=== PATIENT | female | born 1965 | race Two or more races ===

== ENCOUNTER 2020-08-18 11:40 | Emergency (ER) | payer MEDICAID ==
[~2020-08-18] VITALS: Ht 165.1 cm; Wt 120.2 kg
[2020-08-18] MEDS ORDERED: Ketorolac 30mg Inj IM ONE (12:15)
[2020-08-18] MEDS ORDERED: Bacitracin Oint 15gm Tube TOPIC ONE (12:15)
[2020-08-18] MEDS ORDERED: HYDROcodone/Acetamin 5/325 tab ORAL ONE (12:15)
[2020-08-18 12:20] VITALS: BP 126/76
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
[2020-08-18] MEDS ORDERED: Tetanus/Diptheria/Pertussis IM ONE (12:45)
[2020-08-18 13:41] LABS: HEMATOCRIT 44.8 % (37.0-47.0); HEMOGLOBIN 14.7 G/DL (12.0-16.0); MEAN CORPUSCULAR VOLUME 85 FL (80-99); PLATELET COUNT 334 K/UL (150-450); RED BLOOD COUNT 5.26 M/UL (4.20-5.40); RED CELL DISTRIBUTION WIDTH 13.7 % (11.6-14.8)
[2020-08-18 13:49] LABS: WHITE BLOOD COUNT 25.2 K/UL (4.8-10.8)
[2020-08-18 13:53] LABS: CALCIUM 9.2 MG/DL (8.5-10.1); CREATININE 5.3 MG/DL (0.55-1.30); INR 1.1 (0.9-1.1); POTASSIUM 3.7 MMOL/L (3.5-5.1)
[2020-08-18 13:57] LABS: ALBUMIN 2.5 G/DL (3.4-5.0); ALBUMIN/GLOBULIN RATIO 0.4 (1.0-2.7)
--- NOTE | 2020-08-18 15:19 | NUR ---
ED Nurse Note: pt to be bls transport to [facility] [place] [id number]
[2020-08-18 15:21] LABS: CREATINE KINASE 5955 U/L (26-308)
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
[2020-08-18 15:51] VITALS: BP 128/97
[2020-08-18] MEDS ORDERED: Piperacillin/Tazobactam 3.375 GM in NS 110 ML IVPB ONE (16:00)
--- NOTE | 2020-08-18 16:50 | NUR ---
Report: Call [facility] [place] ED at [phone], give report to Miss Alis JAFFE.
[2020-08-18 21:42] VITALS: BP 126/86
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
== END 2020-08-18 22:00 | disposition short-term general hospital (02) ==
LOC: EDBD 11:40 → EMR 12:10
DX: T24.212A Burn of second degree of left thigh, initial encounter (principal); T24.211A Burn of second degree of right thigh, initial encounter; N19 Unspecified kidney failure; M62.82 Rhabdomyolysis; I10 Essential (primary) hypertension; X08.8XXA Exposure to other specified smoke, fire and flames, initial encounter; Y93.89 Activity, other specified; Y92.830 Public park as the place of occurrence of the external cause; Z59.0 Homelessness
CPT/HCPCS: 36415; 80053; 82550; 85007; 85025; 85610; 85730; 86850; 86900; 86901; 90471; 90715; 96361; 96365; 96372; J1885; J2543; J7030; Z7502; 99285